=== PATIENT | female | born 1995 | race Two or more races ===

== ENCOUNTER 2018-06-19 03:09 | Emergency (ER) | payer OTHER ==
[~2018-06-19] VITALS: Ht 162.6 cm; Wt 59.0 kg
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
--- NOTE | 2018-06-19 03:28 | NUR ---
PT REFUSED WOUND CARE AT THIS TIME. RISK AND BENEFITS EXPLAINED X3. [employer] AT BEDSIDE.
[2018-06-19] MEDS ORDERED: TDAP [DIPH/PERTUSSIS/TET] 0.5 ML VIAL IM ONE ×2 (04:00→04:03)
[2018-06-19] MEDS ORDERED: ACETAMINOPHEN 325 MG TABLET PO ONE (04:00)
[2018-06-19] MEDS ORDERED: LIDOCAINE 1%-EPI 1:100,000 20 ML VIAL TP ONE (04:00)
[2018-06-19] MEDS ORDERED: ACETAMINOPHEN 325 MG TABLET ONE (04:03)
[2018-06-19] MEDS ORDERED: LIDOCAINE 1%-EPI 1:100,000 20 ML VIAL ONE (05:04)
--- NOTE | 2018-06-19 05:15 | NUR ---
[facility] AT BEDSIDE FOR WOUND CARE.
--- NOTE | 2018-06-19 05:36 | NUR ---
Patient discharged to [facility] in stable condition. Written and verbal after care instructions given. Patient verbalizes understanding of instruction. Pt ambulatory with steady gait.
[2018-06-19 05:40] VITALS: BP 138/95
== END 2018-06-19 05:41 ==
LOC: ER 03:18
DX: S61.512A Laceration without foreign body of left wrist, initial encounter (principal); W25.XXXA Contact with sharp glass, initial encounter; Y93.89 Activity, other specified; Y92.89 Other specified places as the place of occurrence of the external cause; Y99.8 Other external cause status
CPT/HCPCS: 12002; 73110; 99283; A4606; A6402 ×2; J3490; 90715